=== PATIENT | female | born 1945 | race Hispanic/Latino ===

== ENCOUNTER 2018-11-25 14:39 | Outpatient (CLI) | payer OTHER ==
--- NOTE | 2018-12-03 13:14 | MMO ---
BILATERAL MAMMOGRAMS: HISTORY: Screening mammography. COMPARISON: Outside exam from [place], dated 11/18/2007. FINDINGS: Heterogeneously dense fibroglandular tissue and benign appearing calcifications. No dominant mass or suspicious calcifications. The study was evaluated with the assistance of computer aided detection. IMPRESSION: BI-RADS Category 1-Negative. Suggest routine followup. POS: [facility]
== END 2018-11-25 14:40 | disposition home or self-care (01) ==
LOC: SCSMAMMO 14:39
PROVIDERS: ATTEND Family Medicine
DX: Z12.31 Encounter for screening mammogram for malignant neoplasm of breast (principal)
CPT/HCPCS: 77067